=== PATIENT | male | born 1995 | race Caucasian/White ===

== ENCOUNTER 2024-02-21 18:02 | Emergency (ER) | payer OTHER ==
[~2024-02-21] VITALS: Ht 182.9 cm; Wt 113.6 kg
[2024-02-21 18:33] VITALS: TEMP 97.1
[2024-02-21 19:41] LABS: BASO % 0.6 % (0.0-2.0); EOS # 0.3 K/mm3 (0.0-0.7); EOS % 4.4 % (0.0-4.0); GRAN # 3.5 K/mm3 (1.4-6.5); GRAN % 49.6 % (42.2-75.2); HEMATOCRIT 46.5 % (42.0-52.0); HEMOGLOBIN 16.5 g/dl (13.5-18.0); LYMPH # 2.7 K/mm3 (1.2-3.4); LYMPH % 37.8 % (20.0-51.0); MEAN CELL VOLUME 86 fl (80.0-100.0); MEAN CORPUSCULAR HEMOGLOBIN 30 pg (27-31); MEAN CORPUSCULAR HGB CONC 36 g/dl (33.0-37.0); MEAN PLATELET VOLUME 9.3 fl (7.4-10.4); MONO # 0.5 K/mm3 (0.1-0.6); MONO % 7.5 % (1.7-9.3); PLATELET COUNT 242 K/mm3 (130-400); RED BLOOD COUNT 5.42 M/mm3 (4.20-5.60); REDCELL DISTRIBUTION WIDTH-CV 12.6 % (11.5-14.5)
[2024-02-21 19:58] LABS: ALANINE AMINOTRANSFERASE 82 U/L (0-55); ALBUMIN 4.5 g/dL (3.5-5.0); ALKALINE PHOSPHATASE 91 U/L (40-150); ANION GAP 12 mmol/L (7-16); AST,SGOT 32 U/L (5-34); BILIRUBIN,TOTAL 0.9 mg/dL (0.2-1.2); BLOOD UREA NITROGEN 16 mg/dL (9-21); CALCIUM 9.3 mg/dL (8.4-10.2); CHLORIDE 106 mEq/L (98-107); CREATININE, serum 1.55 mg/dL (0.72-1.25); GLUCOSE 87 mg/dL (70-99); SODIUM 141 mEq/L (136-145); TOTAL PROTEIN 7.4 g/dl (6.2-8.1)
[2024-02-21 20:01] LABS: TROPONIN-I < 0.010 ng/mL (0.00-0.033)
[2024-02-21 20:50] VITALS: BP 139/90; PULSE 78
== END 2024-02-21 20:50 | disposition home or self-care (01) ==
LOC: COL.ER 18:02
PROVIDERS: Nurse Practitioner
DX: R07.89 Other chest pain (principal)